=== PATIENT | male | born 1995 | race Caucasian/White ===

== ENCOUNTER 2016-06-29 20:04 | Emergency (ER) | payer MEDICAID ==
[~2016-06-29] VITALS: Ht 172.7 cm; Wt 65.5 kg
[2016-06-29 21:49] VITALS: BP 118/88
== END 2016-06-29 22:11 | disposition home or self-care (01) ==
LOC: EMS 20:07
DX: S93.401A Sprain of unspecified ligament of right ankle, initial encounter (principal); W50.2XXA Accidental twist by another person, initial encounter; Y93.66 Activity, soccer; Y92.89 Other specified places as the place of occurrence of the external cause; Y99.8 Other external cause status
CPT/HCPCS: 29515; 99284